=== PATIENT | female | born 1965 | race Caucasian/White ===

== ENCOUNTER 2021-06-26 09:28 | Emergency (ER) | payer SELFPAY ==
[2021-06-26] MEDS: Sodium Chloride 0.9% 1,000 ML IV ONE (10:12)
[2021-06-26] MEDS: Ondansetron 4 MG/2 ML SDV IVPUSH ONE (10:12)
[2021-06-26] MEDS ORDERED: Ondansetron 4 MG Tab.DIS PO ONE (11:30)
== END 2021-06-26 11:40 | disposition home or self-care (01) ==
LOC: FB.ED 09:28
DX: A08.4 Viral intestinal infection, unspecified (principal); R11.2 Nausea with vomiting, unspecified; D75.89 Other specified diseases of blood and blood-forming organs; Z88.2 Allergy status to sulfonamides; Z88.0 Allergy status to penicillin; Z72.0 Tobacco use
CPT/HCPCS: 80053; 85025; 96374; 99283; 99284-25; J2405; J7030; Q0162

== ENCOUNTER 2021-06-27 13:40 | Emergency (ER) | payer SELFPAY ==
[2021-06-27] MEDS: Sodium Chloride 0.9% 1,000 ML IV ONE (14:00)
[2021-06-27] MEDS: Dronabinol 2.5 MG Cap PO ONE (14:26)
[2021-06-27] MEDS: Prochlorperazine 5 MG in Sodium Chloride 0.9% 50 ML IV ONE (14:37)
== END 2021-06-27 15:42 | disposition home or self-care (01) ==
LOC: FB.ED 13:40
DX: F32.A Depression, unspecified (principal); F41.9 Anxiety disorder, unspecified; R11.2 Nausea with vomiting, unspecified; E86.0 Dehydration; Z88.0 Allergy status to penicillin; Z88.2 Allergy status to sulfonamides; Z72.0 Tobacco use
CPT/HCPCS: 36415; 80053; 85025; 86308; 96365; 99283; 99284-25; J0780; J7030

== ENCOUNTER 2021-11-23 15:50 | Observation (INO) | payer SELFPAY ==
[2021-11-23] MEDS ORDERED: Alum Hydroxide/Mag Hydroxide 30 ML, Lidocaine 2% 15 ML PO ONE ×2 (16:21)
[2021-11-23] MEDS ORDERED: hydrOXYzine HCl 50 MG/ML SDV IM ONE (16:21)
[2021-11-23] MEDS ORDERED: Ketorolac 30 MG/ML SDV IVPUSH ONE (16:21)
[2021-11-23] MEDS ORDERED: Sodium Chloride 0.9% 1,000 ML IV ONE ×3 (16:21→17:28)
[2021-11-23] MEDS ORDERED: Ondansetron 4 MG/2 ML SDV IVPUSH ONE (16:21)
[2021-11-23] MEDS ORDERED: Pantoprazole 40 MG Vial IVPUSH ONE (16:21)
[2021-11-23 17:00] LABS: ESTIMATED GFR 101 mL/min (>60)
[2021-11-23] MEDS ORDERED: Iopamidol 755 Mg/ML 100 ML Bottle IV ONE (17:47)
[2021-11-23] MEDS ORDERED: Acetaminophen 325 MG Tab PO PRN (18:44)
[2021-11-23] MEDS ORDERED: Zolpidem 5 MG Tab PO PRN (18:44)
[2021-11-23] MEDS ORDERED: Ondansetron 4 MG/2 ML SDV IV PRN (18:44)
[2021-11-23] MEDS ORDERED: hydrOXYzine HCl 50 MG/ML SDV IM PRN (18:44)
[2021-11-23] MEDS: Sodium Chloride 0.9% 250 ML IV SCH ×3 (20:50→23:20)
[2021-11-23] MEDS: Sodium Chloride 0.9% 10 ML Syringe FLUSH PRN (20:50)
[2021-11-23] MEDS: QUEtiapine 25 MG Tab *PTOM PO SCH (21:30)
[2021-11-23] MEDS ORDERED: Nicotine 21 MG/24 Hr Patch ONE (21:51)
[2021-11-23] MEDS: Nicotine 21 MG/24 Hr Patch TRDERM SCH (21:57)
[2021-11-24] MEDS: Sodium Chloride 0.9% 10 ML Syringe FLUSH PRN (02:20)
[2021-11-24 06:37] LABS: ESTIMATED GFR 86 mL/min (>60)
[2021-11-24] MEDS ORDERED: Sodium Chloride 0.9% 250 ML IV SCH ×2 (07:15→09:00)
[2021-11-24] MEDS ORDERED: Nicotine 21 MG/24 Hr Patch TRDERM SCH ×2 (09:00→21:30)
[2021-11-24] MEDS: CITALOPRAM HYDROBROMIDE 40 MG PO SCH (13:09)
[2021-11-24] MEDS ORDERED: Polyethylene Glycol 3350 Powder 238 GM Bot PO ONE (14:00)
[2021-11-24] MEDS ORDERED: Bisacodyl 5 MG Tab PO ONE ×2 (14:00→16:00)
[2021-11-24] MEDS: QUEtiapine 25 MG Tab *PTOM PO SCH (20:46)
[2021-11-24] MEDS: Nicotine 21 MG/24 Hr Patch TRDERM SCH (20:48)
[2021-11-25 07:11] LABS: ESTIMATED GFR 101 mL/min (>60)
[2021-11-25] MEDS: Sodium Chloride 0.9% 10 ML Syringe FLUSH PRN (07:59)
[2021-11-25] MEDS ORDERED: Lactated Ringers 1,000 ML IV SCH (08:00)
[2021-11-25] MEDS: CITALOPRAM HYDROBROMIDE 40 MG PO SCH (09:22)
[2021-11-25] MEDS ORDERED: Pantoprazole 40 MG Tab.CR PO SCH (10:00)
[2021-11-25] MEDS ORDERED: Sucralfate 1 GM Tab PO SCH (11:30)
[2021-11-25] MEDS ORDERED: Propofol 200 MG/20 ML SDV IV ONE (11:34)
[2021-11-25] MEDS ORDERED: Lidocaine 2% Viscous Solution 15 ML UD PO ONE (11:34)
== END 2021-11-25 11:35 | disposition home or self-care (01) ==
LOC: FB.ED 15:50 → FB.MS 17:36
PROVIDERS: ADMIT Family Medicine; ATTEND Family Medicine
DX: K29.01 Acute gastritis with bleeding (principal); K29.80 Duodenitis without bleeding; K62.1 Rectal polyp; K44.9 Diaphragmatic hernia without obstruction or gangrene; K31.89 Other diseases of stomach and duodenum; D64.9 Anemia, unspecified; F41.9 Anxiety disorder, unspecified; D50.0 Iron deficiency anemia secondary to blood loss (chronic); F32.A Depression, unspecified; K27.9 Peptic ulcer, site unspecified, unspecified as acute or chronic, without hemorrhage or perforation; J40 Bronchitis, not specified as acute or chronic; F17.210 Nicotine dependence, cigarettes, uncomplicated; Z88.0 Allergy status to penicillin; Z88.2 Allergy status to sulfonamides; Z79.899 Other long term (current) drug therapy; Z98.890 Other specified postprocedural states
CPT/HCPCS: 00813; 36415; 36430; 43239; 45384; 71046; 74177; 80048; 80053; 81001; 82272; 82607; 82728; 82746; 83010; 83615; 83690; 85025; 85045; 86140; 86850; 86880; 86900; 86901; 86920; 86922; 88300; 88305; 99217; 99219; 99283; A9270; C9113; J1885; J2405; J2704; J3410; J3490; J7030; J7050; J7120; P9016; Q9967

== ENCOUNTER 2022-06-25 10:52 | Emergency (ER) | payer MEDICAID ==
[2022-06-25] MEDS ORDERED: Ondansetron 4 MG Tab.DIS PO ONE (10:53)
[2022-06-25] MEDS ORDERED: Ondansetron 4 MG/2 ML SDV IVPUSH ONE (11:22)
[2022-06-25] MEDS ORDERED: Sodium Chloride 0.9% 1,000 ML IV SCH ×2 (11:30→12:15)
[2022-06-25] MEDS: Sodium Chloride 0.9% 10 ML Syringe FLUSH PRN ×3 (11:34→13:05)
[2022-06-25 11:49] LABS: ESTIMATED GFR 75 mL/min (>60)
[2022-06-25] MEDS ORDERED: Multivitamin Tab PO SCH (12:15)
[2022-06-25] MEDS ORDERED: Ketorolac 30 MG/ML SDV IVPUSH ONE (12:16)
[2022-06-25 12:19] LABS: CORONAVIRUS COVID-19 NAA NEGATIVE (NEGATIVE)
[2022-06-25] MEDS ORDERED: Prochlorperazine 10 MG/2 ML SDV IVPUSH ONE (12:53)
== END 2022-06-25 13:35 | disposition home or self-care (01) ==
LOC: FB.ED 10:52
DX: U07.1 COVID-19 (principal); E86.0 Dehydration; D64.9 Anemia, unspecified; Z88.0 Allergy status to penicillin; Z88.2 Allergy status to sulfonamides; Z79.899 Other long term (current) drug therapy
CPT/HCPCS: 0241U; 36415; 71045; 80053; 82150; 83690; 85025; 96361; 96374; 96375; 99284; A9270; J0780; J1885; J2405; J3490; J7030; Q0162

== ENCOUNTER 2022-12-29 18:11 | Emergency (ER) | payer MEDICAID ==
[2022-12-29] MEDS ORDERED: Ondansetron 4 MG/2 ML SDV IVPUSH ONE (18:45)
[2022-12-29] MEDS ORDERED: Sodium Chloride 0.9% 1,000 ML IV ONE (18:45)
[2022-12-29] MEDS ORDERED: Sodium Chloride 0.9% 10 ML Syringe FLUSH PRN (18:45)
[2022-12-29 19:21] LABS: BASOPHILS PERCENT AUTO 0.9 % (0.2-1.5); BLOOD UREA NITROGEN,BUN 17 mg/dL (7-18); BUN/CREATININE RATIO 24.3 (9-20); CALCIUM 8.8 mg/dL (8.6-10.2); CARBON DIOXIDE,CO2 27 mmol/L (21-32); CHLORIDE,CL 104 mmol/L (100-110); CREATININE 0.7 mg/dL (0.55-1.02); EOSINOPHILS ABSOLUTE AUTO 0.1 x10-3/uL (0.0-0.8); EOSINOPHILS PERCENT AUTO 1.3 % (0.6-8.1); EST CRCL DRUG DOSING (CG) 76.57 mL/min; ESTIMATED GFR 101 mL/min (>60); GLUCOSE RANDOM 148 mg/dL (80-116); HEMATOCRIT 23.6 % (34.2-48.2); HEMOGLOBIN 8.2 g/dL (11.4-15.5); LYMPHOCYTES ABSOLUTE AUTO 0.8 x10-3/uL (1.0-4.4); LYMPHOCYTES PERCENT AUTO 19.1 % (18.4-52.1); MEAN CORPUSCULAR HEMOGLOBIN 31.5 pg (23.9-33.9); MEAN CORPUSCULAR HGB CONC 34.7 g/dL (31.9-34.8); MEAN CORPUSCULAR VOLUME 90.8 fL (76.7-100.5); MEAN PLATELET VOLUME 8.1 fL (7.1-12.4); MONOCYTES ABSOLUTE AUTO 0.3 x10-3/uL (0.3-1.0); NEUTROPHILS PERCENT AUTO 70.7 % (30.8-76.2); PLATELET COUNT,PLT 246 x10(3)uL (151-488); RED CELL DISTRIBUTION WIDTH 14.5 % (12.3-16.5); SODIUM,NA 139 mmol/L (135-145); WHITE BLOOD CELL COUNT,WBC 4.2 x10-3/uL (3.0-10.3)
[2022-12-29 19:27] LABS: A/G RATIO 1.2; ALANINE AMINOTRANSFERASE,ALT 40 U/L (12-36); ALBUMIN 3.6 g/dL (3.5-5.2); ALKALINE PHOSPHATASE 115 IU/L (56-112); ASPARTATE AMNIOTRANSFERASE,AST 30 IU/L (5-25); BILIRUBIN TOTAL 1.3 mg/dL (0.1-1.3); PROTEIN TOTAL,TP 6.7 g/dL (6.0-8.0)
[2022-12-29 20:30] LABS: BILIRUBIN,URINE NEGATIVE (NEGATIVE); GLUCOSE,URINE NORMAL (NORMAL); KETONES,URINE 15 mg/dL (NEGATIVE); LEUKOCYTE ESTERASE,URINE SMALL (NEGATIVE); NITRITE,URINE NEGATIVE (NEGATIVE); OCCULT BLOOD,URINE MODERATE (NEGATIVE); PROTEIN,URINE TRACE mg/dL (NEGATIVE); UROBILINOGEN,URINE NORMAL (NEGATIVE)
[2022-12-29 20:31] LABS: APPEARANCE,URINE SLIGHTLY CLOUDY (CLEAR); BACTERIA,URINE MODERATE (NS); COLOR,URINE YELLOW (YELLOW); RBC,URINE 0-5 (0-5); SQUAMOUS EPITHELIAL CELLS,UR FEW (NS,R,O); WBC,URINE 0-5 (0-5)
[2022-12-29 20:32] LABS: MUCUS,URINE FEW (NS)
== END 2022-12-29 20:32 | disposition still patient (30) ==
LOC: FB.ED 18:11
DX: S99.921A Unspecified injury of right foot, initial encounter (principal); E86.0 Dehydration; F17.200 Nicotine dependence, unspecified, uncomplicated; Z88.0 Allergy status to penicillin; Z88.1 Allergy status to other antibiotic agents; X50.1XXA Overexertion from prolonged static or awkward postures, initial encounter; Y93.01 Activity, walking, marching and hiking
CPT/HCPCS: 36415; 80053; 81001; 83690; 83735; 85025; 87635; 96361; 96374; 99284; J2405; J3490; J7030; U0002

== ENCOUNTER 2023-01-06 13:00 | Emergency (ER) | payer MEDICAID ==
[2023-01-06] MEDS: Sodium Chloride 0.9% 1,000 ML IV SCH (13:39)
[2023-01-06] MEDS: Ondansetron 4 MG/2 ML SDV IVPUSH ONE (13:40)
[2023-01-06 13:41] LABS: EOSINOPHILS PERCENT AUTO 0.9 % (0.6-8.1); HEMATOCRIT 25.2 % (34.2-48.2); HEMOGLOBIN 8.7 g/dL (11.4-15.5); LYMPHOCYTES ABSOLUTE AUTO 0.9 x10-3/uL (1.0-4.4); LYMPHOCYTES PERCENT AUTO 23.1 % (18.4-52.1); MEAN CORPUSCULAR HEMOGLOBIN 31.3 pg (23.9-33.9); MEAN CORPUSCULAR HGB CONC 34.6 g/dL (31.9-34.8); MEAN CORPUSCULAR VOLUME 90.5 fL (76.7-100.5); MEAN PLATELET VOLUME 8.6 fL (7.1-12.4); MONOCYTES ABSOLUTE AUTO 0.3 x10-3/uL (0.3-1.0); NEUTROPHILS ABSOLUTE AUTO 2.7 x10-3/uL (1.5-6.3); PLATELET COUNT,PLT 176 x10(3)uL (151-488); RED BLOOD CELL COUNT 2.78 x10(6)uL (3.60-5.20); RED CELL DISTRIBUTION WIDTH 15.3 % (12.3-16.5)
[2023-01-06] MEDS: Morphine 4 MG/ML VIAL IVPUSH ONE (13:42)
[2023-01-06 13:47] LABS: BLOOD UREA NITROGEN,BUN 17 mg/dL (7-18); BUN/CREATININE RATIO 24.3 (9-20); CALCIUM 9.1 mg/dL (8.6-10.2); CARBON DIOXIDE,CO2 30 mmol/L (21-32); CHLORIDE,CL 108 mmol/L (100-110); CREATININE 0.7 mg/dL (0.55-1.02); ESTIMATED GFR 101 mL/min (>60); GLUCOSE RANDOM 145 mg/dL (80-116); POTASSIUM,K 4.6 mmol/L (3.5-5.3); SODIUM,NA 146 mmol/L (135-145)
[2023-01-06 13:53] LABS: A/G RATIO 1.3; ALANINE AMINOTRANSFERASE,ALT 38 U/L (12-36); ALBUMIN 3.5 g/dL (3.5-5.2); ALKALINE PHOSPHATASE 100 IU/L (56-112); AMYLASE 30 U/L (25-115); ASPARTATE AMNIOTRANSFERASE,AST 35 IU/L (5-25); BILIRUBIN TOTAL 1.2 mg/dL (0.1-1.3); PROTEIN TOTAL,TP 6.3 g/dL (6.0-8.0)
[2023-01-06 13:56] LABS: LACTIC ACID 1.2 mmol/L (0.4-2.0)
== END 2023-01-06 15:16 | disposition home or self-care (01) ==
LOC: FB.ED 13:00
DX: K52.9 Noninfective gastroenteritis and colitis, unspecified (principal); Z72.0 Tobacco use; Z88.0 Allergy status to penicillin; Z88.2 Allergy status to sulfonamides
CPT/HCPCS: 36415; 80053; 82150; 83605; 83690; 85025; 96361; 96374; 96375; 99283; 99284-25; J2270; J2405; J7030

== ENCOUNTER 2023-01-09 15:51 | Observation (INO) | payer MEDICAID ==
[2023-01-09] MEDS: Sodium Chloride 0.9% 1,000 ML IV ONE (16:30)
[2023-01-09] MEDS: Ondansetron 4 MG/2 ML SDV IVPUSH ONE (16:33)
[2023-01-09 16:35] LABS: BASOPHILS PERCENT AUTO 0.7 % (0.2-1.5); EOSINOPHILS PERCENT AUTO 0.8 % (0.6-8.1); LYMPHOCYTES ABSOLUTE AUTO 1.1 x10-3/uL (1.0-4.4); LYMPHOCYTES PERCENT AUTO 32.5 % (18.4-52.1); MEAN CORPUSCULAR HGB CONC 34.6 g/dL (31.9-34.8); MEAN CORPUSCULAR VOLUME 89.5 fL (76.7-100.5); MEAN PLATELET VOLUME 8.2 fL (7.1-12.4); MONOCYTES ABSOLUTE AUTO 0.3 x10-3/uL (0.3-1.0); MONOCYTES PERCENT AUTO 7.4 % (4.4-15.7); NEUTROPHILS ABSOLUTE AUTO 2.1 x10-3/uL (1.5-6.3); NEUTROPHILS PERCENT AUTO 58.6 % (30.8-76.2); PLATELET COUNT,PLT 187 x10(3)uL (151-488); RED BLOOD CELL COUNT 2.57 x10(6)uL (3.60-5.20); WHITE BLOOD CELL COUNT,WBC 3.5 x10-3/uL (3.0-10.3)
[2023-01-09 16:41] LABS: BLOOD UREA NITROGEN,BUN 24 mg/dL (7-18); BUN/CREATININE RATIO 34.3 (9-20); CALCIUM 8.8 mg/dL (8.6-10.2); CARBON DIOXIDE,CO2 30 mmol/L (21-32); CHLORIDE,CL 106 mmol/L (100-110); CREATININE 0.7 mg/dL (0.55-1.02); ESTIMATED GFR 101 mL/min (>60); GLUCOSE RANDOM 106 mg/dL (80-116); POTASSIUM,K 3.6 mmol/L (3.5-5.3); SODIUM,NA 144 mmol/L (135-145)
[2023-01-09 16:47] LABS: A/G RATIO 1.3; ALANINE AMINOTRANSFERASE,ALT 40 U/L (12-36); ALBUMIN 3.6 g/dL (3.5-5.2); ALKALINE PHOSPHATASE 100 IU/L (56-112); ASPARTATE AMNIOTRANSFERASE,AST 28 IU/L (5-25); BILIRUBIN TOTAL 1.4 mg/dL (0.1-1.3); PROTEIN TOTAL,TP 6.3 g/dL (6.0-8.0)
[2023-01-09] MEDS: Iopamidol 755 Mg/ML 100 ML Bottle IV SCH (17:48)
[2023-01-09 18:48] LABS: BILIRUBIN,URINE NEGATIVE (NEGATIVE); GLUCOSE,URINE NORMAL (NORMAL); KETONES,URINE 50 mg/dL (NEGATIVE); LEUKOCYTE ESTERASE,URINE NEGATIVE (NEGATIVE); NITRITE,URINE NEGATIVE (NEGATIVE); OCCULT BLOOD,URINE MODERATE (NEGATIVE); PH,URINE 6.5 (5.0-6.5); PROTEIN,URINE NEGATIVE (NEGATIVE); UROBILINOGEN,URINE 4 mg/dL (NEGATIVE)
[2023-01-09 18:52] LABS: APPEARANCE,URINE CLEAR (CLEAR); BACTERIA,URINE OCCASIONAL (NS); CALCIUM OXALATE CRYSTALS,URINE OCCASIONAL (NS); COLOR,URINE YELLOW (YELLOW); RBC,URINE 0-5 (0-5); SQUAMOUS EPITHELIAL CELLS,UR OCCASIONAL (NS,R,O); WBC,URINE 0-5 (0-5)
[2023-01-09] MEDS ORDERED: Zolpidem 5 MG Tab PO PRN (19:56)
[2023-01-09] MEDS ORDERED: Ondansetron 4 MG/2 ML SDV IVPUSH PRN (20:00)
[2023-01-09] MEDS ORDERED: Sodium Chloride 0.9% 250 ML IV SCH (20:00)
[2023-01-09] MEDS ORDERED: Loperamide 2 MG Cap PO PRN (20:00)
[2023-01-09] MEDS: Acetaminophen 325 MG Tab PO PRN (21:43)
[2023-01-09] MEDS: QUEtiapine 25 MG Tab PO SCH (21:43)
[2023-01-10] MEDS ORDERED: Non-Formulary Medication 1 Each (Esomeprazole Magnesium [Nexium] 40 MG Capsule.Dr) PO SCH ×2 (09:00)
[2023-01-10 10:25] LABS: BASOPHILS PERCENT AUTO 1.4 % (0.2-1.5); EOSINOPHILS PERCENT AUTO 1.4 % (0.6-8.1); HEMATOCRIT 29.4 % (34.2-48.2); HEMOGLOBIN 10.3 g/dL (11.4-15.5); LYMPHOCYTES ABSOLUTE AUTO 1.1 x10-3/uL (1.0-4.4); LYMPHOCYTES PERCENT AUTO 35.5 % (18.4-52.1); MEAN CORPUSCULAR HEMOGLOBIN 31.2 pg (23.9-33.9); MEAN CORPUSCULAR HGB CONC 34.9 g/dL (31.9-34.8); MEAN CORPUSCULAR VOLUME 89.3 fL (76.7-100.5); MEAN PLATELET VOLUME 8.5 fL (7.1-12.4); MONOCYTES ABSOLUTE AUTO 0.2 x10-3/uL (0.3-1.0); MONOCYTES PERCENT AUTO 7.6 % (4.4-15.7); NEUTROPHILS ABSOLUTE AUTO 1.7 x10-3/uL (1.5-6.3); NEUTROPHILS PERCENT AUTO 54.1 % (30.8-76.2); PLATELET COUNT,PLT 175 x10(3)uL (151-488); RED BLOOD CELL COUNT 3.29 x10(6)uL (3.60-5.20); RED CELL DISTRIBUTION WIDTH 14.7 % (12.3-16.5); WHITE BLOOD CELL COUNT,WBC 3.2 x10-3/uL (3.0-10.3)
[2023-01-10 10:34] LABS: A/G RATIO 1.3; ALBUMIN 3.5 g/dL (3.5-5.2); BILIRUBIN TOTAL 1.7 mg/dL (0.1-1.3); CARBON DIOXIDE,CO2 30 mmol/L (21-32); CHLORIDE,CL 105 mmol/L (100-110); CREATININE 0.8 mg/dL (0.55-1.02); ESTIMATED GFR 86 mL/min (>60); GLUCOSE RANDOM 127 mg/dL (80-116); POTASSIUM,K 3.6 mmol/L (3.5-5.3); PROTEIN TOTAL,TP 6.2 g/dL (6.0-8.0); SODIUM,NA 141 mmol/L (135-145)
[2023-01-10 10:36] LABS: ALANINE AMINOTRANSFERASE,ALT 62 U/L (12-36); ALKALINE PHOSPHATASE 108 IU/L (56-112); ASPARTATE AMNIOTRANSFERASE,AST 89 IU/L (5-25); BLOOD UREA NITROGEN,BUN 17 mg/dL (7-18); BUN/CREATININE RATIO 21.3 (9-20); CALCIUM 8.9 mg/dL (8.6-10.2)
== END 2023-01-10 11:23 | disposition home or self-care (01) ==
LOC: FB.ED 15:51 → FB.MS 19:38
PROVIDERS: ADMIT Family Medicine; ATTEND Family Medicine
DX: D64.9 Anemia, unspecified (principal); K29.50 Unspecified chronic gastritis without bleeding; N19 Unspecified kidney failure; K52.9 Noninfective gastroenteritis and colitis, unspecified; E86.0 Dehydration; R16.1 Splenomegaly, not elsewhere classified; R11.2 Nausea with vomiting, unspecified; Z79.899 Other long term (current) drug therapy
CPT/HCPCS: 36415; 36430; 71275; 80053; 81001; 82248; 84484; 85025; 85379; 86140; 86850; 86900; 86901; 86920; 86922; 93005; 93010; 96361; 96374; 99222; 99238; 99285; 99285-25; A9270-GY; G0378; J2405; J7030; P9040; Q9967

== ENCOUNTER 2023-02-13 07:31 | Day surgery (SDC) | payer MEDICAID ==
[~2023-02-13 07:31] MED LIST: Lactated Ringers 1,000 ML IV SCH; Sodium Chloride 0.9% 10 ML Syringe FLUSH PRN
[2023-02-13] MEDS ORDERED: Lidocaine 2% 5 ML SDV IV ONE (07:32)
[2023-02-13] MEDS ORDERED: Midazolam 1 MG/ML 2 ML SDV IV ONE (07:32)
[2023-02-13] MEDS ORDERED: Propofol 200 MG/20 ML SDV IV ONE (07:32)
[2023-02-13] MEDS ORDERED: Ketamine 500 mg/10 ML MDV IV ONE (07:32)
[2023-02-13] MEDS ORDERED: ceFAZolin 1 GM Vial IVPUSH ONE (08:30)
[2023-02-13] MEDS ORDERED: Lidocaine 1% 20 ML MDV INJECT ONE (09:32)
[2023-02-13] MEDS ORDERED: Bupivacaine 0.5% 30 ML SDV INJECT ONE (09:32)
== END 2023-02-13 11:40 | disposition home or self-care (01) ==
LOC: FB.SDS 07:31
PROVIDERS: ATTEND Surgery
DX: D46.9 Myelodysplastic syndrome, unspecified (principal); Z79.899 Other long term (current) drug therapy; Z88.0 Allergy status to penicillin; Z88.2 Allergy status to sulfonamides
CPT/HCPCS: 36561; 76000; J0690; J1642; J2250; J2704; J3490; J7120; 00532

== ENCOUNTER 2023-03-16 09:12 | Emergency (ER) | payer MEDICAID ==
[2023-03-16] MEDS ORDERED: Ondansetron 4 MG/2 ML SDV IVPUSH ONE (09:39)
[2023-03-16] MEDS ORDERED: Sodium Chloride 0.9% 10 ML Syringe FLUSH PRN (09:39)
[2023-03-16] MEDS ORDERED: Sodium Chloride 0.9% 1,000 ML IV SCH (09:45)
[2023-03-16 10:05] LABS: BASOPHILS PERCENT AUTO 0.7 % (0.2-1.5); EOSINOPHILS ABSOLUTE AUTO 0.1 x10-3/uL (0.0-0.8); EOSINOPHILS PERCENT AUTO 3.3 % (0.6-8.1); HEMATOCRIT 28.1 % (34.2-48.2); HEMOGLOBIN 9.7 g/dL (11.4-15.5); LYMPHOCYTES ABSOLUTE AUTO 1.4 x10-3/uL (1.0-4.4); LYMPHOCYTES PERCENT AUTO 34.5 % (18.4-52.1); MEAN CORPUSCULAR HEMOGLOBIN 29.7 pg (23.9-33.9); MEAN CORPUSCULAR HGB CONC 34.5 g/dL (31.9-34.8); MEAN CORPUSCULAR VOLUME 86.1 fL (76.7-100.5); MEAN PLATELET VOLUME 8.1 fL (7.1-12.4); MONOCYTES ABSOLUTE AUTO 0.3 x10-3/uL (0.3-1.0); MONOCYTES PERCENT AUTO 7.6 % (4.4-15.7); NEUTROPHILS ABSOLUTE AUTO 2.2 x10-3/uL (1.5-6.3); NEUTROPHILS PERCENT AUTO 53.9 % (30.8-76.2); PLATELET COUNT,PLT 184 x10(3)uL (151-488); RED BLOOD CELL COUNT 3.27 x10(6)uL (3.60-5.20); RED CELL DISTRIBUTION WIDTH 14.1 % (12.3-16.5)
[2023-03-16 10:09] LABS: BLOOD UREA NITROGEN,BUN 16 mg/dL (7-18); BUN/CREATININE RATIO 26.7 (9-20); CALCIUM 8.6 mg/dL (8.6-10.2); CARBON DIOXIDE,CO2 29 mmol/L (21-32); CHLORIDE,CL 105 mmol/L (100-110); CREATININE 0.6 mg/dL (0.55-1.02); EST CRCL DRUG DOSING (CG) 89.33 mL/min; ESTIMATED GFR 105 mL/min (>60); GLUCOSE RANDOM 95 mg/dL (80-116); POTASSIUM,K 4.3 mmol/L (3.5-5.3); SODIUM,NA 136 mmol/L (135-145)
[2023-03-16 10:20] LABS: ALANINE AMINOTRANSFERASE,ALT 53 U/L (12-36); ALBUMIN 3.3 g/dL (3.5-5.2); ALKALINE PHOSPHATASE 106 IU/L (56-112); ASPARTATE AMNIOTRANSFERASE,AST 48 IU/L (5-25); BILIRUBIN TOTAL 1.4 mg/dL (0.1-1.3); PROTEIN TOTAL,TP 6.6 g/dL (6.0-8.0)
[2023-03-16] MEDS ORDERED: Heparin Sodium 10 Units/ML 5 ML Syringe FLUSH STA (11:24)
== END 2023-03-16 11:40 | disposition home or self-care (01) ==
LOC: FB.ED 09:12
DX: K52.9 Noninfective gastroenteritis and colitis, unspecified (principal); E86.0 Dehydration; D64.9 Anemia, unspecified; F17.210 Nicotine dependence, cigarettes, uncomplicated; Z88.0 Allergy status to penicillin; Z79.899 Other long term (current) drug therapy; Z88.2 Allergy status to sulfonamides
CPT/HCPCS: 80053; 85025; 96361; 96374; 99283; 99284; J1642; J2405; J7030

== ENCOUNTER 2023-04-10 17:05 | Emergency (ER) | payer MEDICAID ==
[2023-04-10] MEDS ORDERED: Ondansetron 4 MG/2 ML SDV IVPUSH ONE (17:21)
[2023-04-10] MEDS ORDERED: Sodium Chloride 0.9% 1,000 ML IV ONE (17:21)
[2023-04-10] MEDS ORDERED: HYDROmorphone 2 MG/ML SDV IVPUSH ONE (17:21)
[2023-04-10] MEDS ORDERED: Naloxone 0.4 MG/ML SDV IVPUSH PRN (17:21)
[2023-04-10 17:48] LABS: HEMOGLOBIN 11.2 g/dL (11.4-15.5); RED CELL DISTRIBUTION WIDTH 13.2 % (12.3-16.5)
[2023-04-10 17:51] LABS: BASOPHILS PERCENT AUTO 0.7 % (0.2-1.5); EOSINOPHILS ABSOLUTE AUTO 0.1 x10-3/uL (0.0-0.8); EOSINOPHILS PERCENT AUTO 2.5 % (0.6-8.1); HEMATOCRIT 31.7 % (34.2-48.2); LYMPHOCYTES ABSOLUTE AUTO 1.9 x10-3/uL (1.0-4.4); LYMPHOCYTES PERCENT AUTO 41.1 % (18.4-52.1); MEAN CORPUSCULAR HEMOGLOBIN 30.2 pg (23.9-33.9); MEAN CORPUSCULAR HGB CONC 35.5 g/dL (31.9-34.8); MEAN PLATELET VOLUME 8.3 fL (7.1-12.4); MONOCYTES ABSOLUTE AUTO 0.2 x10-3/uL (0.3-1.0); MONOCYTES PERCENT AUTO 3.9 % (4.4-15.7); NEUTROPHILS ABSOLUTE AUTO 2.4 x10-3/uL (1.5-6.3); NEUTROPHILS PERCENT AUTO 51.8 % (30.8-76.2); PLATELET COUNT,PLT 151 x10(3)uL (151-488); RED BLOOD CELL COUNT 3.73 x10(6)uL (3.60-5.20); WHITE BLOOD CELL COUNT,WBC 4.7 x10-3/uL (3.0-10.3)
[2023-04-10 18:01] LABS: BLOOD UREA NITROGEN,BUN 22 mg/dL (7-18); BUN/CREATININE RATIO 31.4 (9-20); CALCIUM 9.2 mg/dL (8.6-10.2); CARBON DIOXIDE,CO2 29 mmol/L (21-32); CHLORIDE,CL 105 mmol/L (100-110); CREATININE 0.7 mg/dL (0.55-1.02); EST CRCL DRUG DOSING (CG) 76.57 mL/min; ESTIMATED GFR 101 mL/min (>60); GLUCOSE RANDOM 95 mg/dL (80-116); POTASSIUM,K 3.1 mmol/L (3.5-5.3); SODIUM,NA 140 mmol/L (135-145)
[2023-04-10 18:07] LABS: A/G RATIO 1.2; ALANINE AMINOTRANSFERASE,ALT 40 U/L (12-36); ALBUMIN 3.5 g/dL (3.5-5.2); ALKALINE PHOSPHATASE 116 IU/L (56-112); ASPARTATE AMNIOTRANSFERASE,AST 28 IU/L (5-25); BILIRUBIN TOTAL 1.8 mg/dL (0.1-1.3); MAGNESIUM 1.6 mg/dL (1.8-2.5); PROTEIN TOTAL,TP 6.4 g/dL (6.0-8.0)
[2023-04-10] MEDS ORDERED: LORazepam 2 MG/ML SDV IVPUSH ONE (18:41)
[2023-04-10] MEDS ORDERED: Prochlorperazine 10 MG/2 ML SDV IVPUSH ONE (18:41)
[2023-04-10] MEDS ORDERED: Magnesium Sulfate/Water 2 GM in Premix Bag 1 BAG IV ONE (18:41)
[2023-04-10] MEDS ORDERED: Potassium Chloride 20 MEQ Tab.ER PO ONE (18:41)
== END 2023-04-10 20:35 | disposition home or self-care (01) ==
LOC: FB.ED 17:05
DX: E87.6 Hypokalemia (principal); E83.42 Hypomagnesemia; E86.0 Dehydration; R10.84 Generalized abdominal pain; R51.9 Headache, unspecified; Z88.0 Allergy status to penicillin; Z88.2 Allergy status to sulfonamides; Z87.891 Personal history of nicotine dependence
CPT/HCPCS: 80053; 83605; 83735; 85025; 86140; 96361; 96365; 96375; 99284; A9270; J0780; J1170; J1642; J2060; J2405; J3475; J7030

== ENCOUNTER 2023-08-20 14:43 | Emergency (ER) | payer MEDICAID ==
[2023-08-20 15:38] LABS: BASOPHILS PERCENT AUTO 0.8 % (0.2-1.5); EOSINOPHILS PERCENT AUTO 0.4 % (0.6-8.1); LYMPHOCYTES ABSOLUTE AUTO 1.2 x10-3/uL (1.0-4.4); LYMPHOCYTES PERCENT AUTO 25.3 % (18.4-52.1); MEAN CORPUSCULAR HGB CONC 34.4 g/dL (31.9-34.8); MEAN CORPUSCULAR VOLUME 90.2 fL (76.7-100.5); MEAN PLATELET VOLUME 10.5 fL (7.1-12.4); MONOCYTES ABSOLUTE AUTO 0.3 x10-3/uL (0.3-1.0); MONOCYTES PERCENT AUTO 5.5 % (4.4-15.7); NEUTROPHILS ABSOLUTE AUTO 3.3 x10-3/uL (1.5-6.3); PLATELET COUNT,PLT 124 x10(3)uL (151-488); RED BLOOD CELL COUNT 2.23 x10(6)uL (3.60-5.20); RED CELL DISTRIBUTION WIDTH 13.4 % (12.3-16.5); WHITE BLOOD CELL COUNT,WBC 4.9 x10-3/uL (3.0-10.3)
[2023-08-20 15:39] LABS: BLOOD UREA NITROGEN,BUN 35 mg/dL (7-18); CARBON DIOXIDE,CO2 27 mmol/L (21-32); CHLORIDE,CL 103 mmol/L (100-110); CREATININE 0.7 mg/dL (0.55-1.02); EST CRCL DRUG DOSING (CG) 75.65 mL/min; ESTIMATED GFR 100 mL/min (>60); GLUCOSE RANDOM 179 mg/dL (80-116); POTASSIUM,K 3.7 mmol/L (3.5-5.3); SODIUM,NA 141 mmol/L (135-145)
[2023-08-20 15:41] LABS: HEMATOCRIT 20.1 % (34.2-48.2); HEMOGLOBIN 6.9 g/dL (11.4-15.5)
[2023-08-20 15:48] LABS: A/G RATIO 1.2; ALANINE AMINOTRANSFERASE,ALT 49 U/L (12-36); ALBUMIN 3.6 g/dL (3.5-5.2); ALKALINE PHOSPHATASE 194 IU/L (56-112); ASPARTATE AMNIOTRANSFERASE,AST 50 IU/L (5-25); BILIRUBIN TOTAL 1.3 mg/dL (0.1-1.3); PROTEIN TOTAL,TP 6.7 g/dL (6.0-8.0)
[2023-08-20 16:25] LABS: BILIRUBIN,URINE NEGATIVE (NEGATIVE); GLUCOSE,URINE NORMAL (NORMAL); KETONES,URINE NEGATIVE (NEGATIVE); LEUKOCYTE ESTERASE,URINE SMALL (NEGATIVE); NITRITE,URINE NEGATIVE (NEGATIVE); OCCULT BLOOD,URINE MODERATE (NEGATIVE); PROTEIN,URINE 30 mg/dL (NEGATIVE); UROBILINOGEN,URINE 1 mg/dL (NEGATIVE)
[2023-08-20 16:31] LABS: APPEARANCE,URINE SLIGHTLY CLOUDY (CLEAR); BACTERIA,URINE MODERATE (NS); COLOR,URINE YELLOW (YELLOW); HYALINE CASTS,URINE FEW (NS); RBC,URINE 0-5 (0-5); SQUAMOUS EPITHELIAL CELLS,UR MODERATE (NS,R,O); WBC,URINE 0-5 (0-5)
[2023-08-20 16:32] LABS: MUCUS,URINE FEW (NS)
[2023-08-20] MEDS: diphenhydrAMINE 50 MG/ML SDV IVPUSH ONE (18:58)
[2023-08-20] MEDS: Ondansetron 4 MG/2 ML SDV IVPUSH ONE (18:58)
[2023-08-20] MEDS: Acetaminophen 500 MG Tab PO ONE (19:17)
[2023-08-20] MEDS: Sodium Chloride 0.9% 250 ML IV SCH (19:32)
== END 2023-08-20 23:33 | disposition home or self-care (01) ==
LOC: FB.ED 14:43
DX: D46.9 Myelodysplastic syndrome, unspecified (principal); F17.210 Nicotine dependence, cigarettes, uncomplicated; Z88.0 Allergy status to penicillin; Z88.2 Allergy status to sulfonamides; Z79.899 Other long term (current) drug therapy
CPT/HCPCS: 36415; 36430; 80053; 81001; 85025; 86850; 86900; 86901; 86920; 86922; 86945; 93005; 96374; 96375; 99285-25; A9270-GY; J1200; J1642; J2405; J7050; P9040

== ENCOUNTER 2023-09-02 07:12 | Emergency (ER) | payer MEDICAID ==
[2023-09-02] MEDS ORDERED: Ondansetron 4 MG Tab.DIS PO ONE (07:13)
[2023-09-02 08:12] LABS: BASOPHILS PERCENT AUTO 0.7 % (0.2-1.5); EOSINOPHILS PERCENT AUTO 0.7 % (0.6-8.1); HEMATOCRIT 27.5 % (34.2-48.2); HEMOGLOBIN 9.3 g/dL (11.4-15.5); LYMPHOCYTES ABSOLUTE AUTO 0.8 x10-3/uL (1.0-4.4); LYMPHOCYTES PERCENT AUTO 18.7 % (18.4-52.1); MEAN CORPUSCULAR HEMOGLOBIN 29.7 pg (23.9-33.9); MEAN CORPUSCULAR HGB CONC 33.7 g/dL (31.9-34.8); MEAN PLATELET VOLUME 10.2 fL (7.1-12.4); MONOCYTES ABSOLUTE AUTO 0.2 x10-3/uL (0.3-1.0); MONOCYTES PERCENT AUTO 4.6 % (4.4-15.7); NEUTROPHILS ABSOLUTE AUTO 3.1 x10-3/uL (1.5-6.3); NEUTROPHILS PERCENT AUTO 75.3 % (30.8-76.2); PLATELET COUNT,PLT 139 x10(3)uL (151-488); RED BLOOD CELL COUNT 3.13 x10(6)uL (3.60-5.20); RED CELL DISTRIBUTION WIDTH 12.8 % (12.3-16.5); WHITE BLOOD CELL COUNT,WBC 4.2 x10-3/uL (3.0-10.3)
[2023-09-02 08:17] LABS: BLOOD UREA NITROGEN,BUN 34 mg/dL (7-18); CALCIUM 8.5 mg/dL (8.6-10.2); CARBON DIOXIDE,CO2 26 mmol/L (21-32); CHLORIDE,CL 105 mmol/L (100-110); CREATININE 0.6 mg/dL (0.55-1.02); ESTIMATED GFR 104 mL/min (>60); GLUCOSE RANDOM 201 mg/dL (80-116); POTASSIUM,K 3.8 mmol/L (3.5-5.3); SODIUM,NA 143 mmol/L (135-145)
[2023-09-02 08:19] LABS: C-REACTIVE PROTEIN 0.65 mg/dL (<0.50)
[2023-09-02 08:23] LABS: A/G RATIO 1.1; ALANINE AMINOTRANSFERASE,ALT 80 U/L (12-36); ALBUMIN 3.6 g/dL (3.5-5.2); ALKALINE PHOSPHATASE 207 IU/L (56-112); ASPARTATE AMNIOTRANSFERASE,AST 87 IU/L (5-25); BILIRUBIN TOTAL 1.3 mg/dL (0.1-1.3); MAGNESIUM 1.8 mg/dL (1.8-2.5); PROTEIN TOTAL,TP 6.9 g/dL (6.0-8.0)
[2023-09-02 08:30] LABS: BUN/CREATININE RATIO 56.7 (9-20)
[2023-09-02] MEDS: Sodium Chloride 0.9% 1,000 ML IV ONE (08:49)
[2023-09-02] MEDS: Ondansetron 4 MG/2 ML SDV IVPUSH ONE (08:54)
[2023-09-02 10:13] LABS: BILIRUBIN,URINE NEGATIVE (NEGATIVE); GLUCOSE,URINE NORMAL (NORMAL); KETONES,URINE NEGATIVE (NEGATIVE); LEUKOCYTE ESTERASE,URINE NEGATIVE (NEGATIVE); NITRITE,URINE NEGATIVE (NEGATIVE); OCCULT BLOOD,URINE MODERATE (NEGATIVE); PROTEIN,URINE 30 mg/dL (NEGATIVE); UROBILINOGEN,URINE 4 mg/dL (NEGATIVE)
[2023-09-02 10:34] LABS: APPEARANCE,URINE CLOUDY (CLEAR); BACTERIA,URINE FEW (NS); COLOR,URINE YELLOW (YELLOW); MUCUS,URINE MANY (NS); RBC,URINE 0-5 (0-5); SQUAMOUS EPITHELIAL CELLS,UR MANY (NS,R,O); WBC,URINE 0-5 (0-5)
[2023-09-02] MEDS: Sodium Chloride 0.9% 10 ML Syringe FLUSH PRN (11:13)
== END 2023-09-02 11:29 | disposition home or self-care (01) ==
LOC: FB.ED 07:12
DX: E86.0 Dehydration (principal); D64.9 Anemia, unspecified; F17.200 Nicotine dependence, unspecified, uncomplicated; Z88.0 Allergy status to penicillin; Z88.2 Allergy status to sulfonamides; Z79.899 Other long term (current) drug therapy
CPT/HCPCS: 80053; 81001; 83690; 83735; 84484; 85025; 86140; 93005; 96361; 96374; 99284-25; J1642; J2405; J3490; J7030; Q0162

== ENCOUNTER 2023-11-26 09:53 | Emergency (ER) | payer MEDICAID ==
[2023-11-26] MEDS ORDERED: Sodium Chloride 0.9% 10 ML Syringe FLUSH PRN (10:24)
[2023-11-26 10:47] LABS: BASOPHILS PERCENT AUTO 0.6 % (0.2-1.5); EOSINOPHILS PERCENT AUTO 0.3 % (0.6-8.1); HEMATOCRIT 26.4 % (34.2-48.2); LYMPHOCYTES ABSOLUTE AUTO 1.6 x10-3/uL (1.0-4.4); LYMPHOCYTES PERCENT AUTO 37.4 % (18.4-52.1); MEAN CORPUSCULAR HGB CONC 34.2 g/dL (31.9-34.8); MEAN CORPUSCULAR VOLUME 87.7 fL (76.7-100.5); MEAN PLATELET VOLUME 10.1 fL (7.1-12.4); MONOCYTES ABSOLUTE AUTO 0.2 x10-3/uL (0.3-1.0); MONOCYTES PERCENT AUTO 5.2 % (4.4-15.7); NEUTROPHILS ABSOLUTE AUTO 2.5 x10-3/uL (1.5-6.3); NEUTROPHILS PERCENT AUTO 56.5 % (30.8-76.2); PLATELET COUNT,PLT 132 x10(3)uL (151-488); RED BLOOD CELL COUNT 3.01 x10(6)uL (3.60-5.20); RED CELL DISTRIBUTION WIDTH 13.3 % (12.3-16.5); WHITE BLOOD CELL COUNT,WBC 4.4 x10-3/uL (3.0-10.3)
[2023-11-26 10:48] LABS: BLOOD UREA NITROGEN,BUN 28 mg/dL (7-18); CALCIUM 8.9 mg/dL (8.6-10.2); CARBON DIOXIDE,CO2 25 mmol/L (21-32); CHLORIDE,CL 104 mmol/L (100-110); CREATININE 0.8 mg/dL (0.55-1.02); ESTIMATED GFR 85 mL/min (>60); GLUCOSE RANDOM 164 mg/dL (80-116); POTASSIUM,K 3.6 mmol/L (3.5-5.3); SODIUM,NA 140 mmol/L (135-145)
[2023-11-26 10:54] LABS: A/G RATIO 1.1; ALANINE AMINOTRANSFERASE,ALT 56 U/L (12-36); ALBUMIN 3.8 g/dL (3.5-5.2); ALKALINE PHOSPHATASE 195 IU/L (56-112); ASPARTATE AMNIOTRANSFERASE,AST 73 IU/L (5-25); BILIRUBIN TOTAL 1.2 mg/dL (0.1-1.3); PROTEIN TOTAL,TP 7.2 g/dL (6.0-8.0)
[2023-11-26] MEDS: Sodium Chloride 0.9% 1,000 ML IV SCH (10:56)
[2023-11-26] MEDS: Ondansetron 4 MG/2 ML SDV IVPUSH ONE (10:57)
[2023-11-26] MEDS: Sodium Chloride 0.9% 1,000 ML IV ONE (12:06)
[2023-11-26 12:57] LABS: BILIRUBIN,URINE NEGATIVE (NEGATIVE); GLUCOSE,URINE NORMAL (NORMAL); KETONES,URINE 15 mg/dL (NEGATIVE); LEUKOCYTE ESTERASE,URINE MODERATE (NEGATIVE); NITRITE,URINE NEGATIVE (NEGATIVE); OCCULT BLOOD,URINE MODERATE (NEGATIVE); PROTEIN,URINE 30 mg/dL (NEGATIVE); UROBILINOGEN,URINE NORMAL (NEGATIVE)
[2023-11-26 13:24] LABS: APPEARANCE,URINE CLOUDY (CLEAR); BACTERIA,URINE MANY (NS); COLOR,URINE YELLOW (YELLOW); SQUAMOUS EPITHELIAL CELLS,UR MODERATE (NS,R,O); WBC,URINE 20-30 (0-5)
== END 2023-11-26 13:17 | disposition home or self-care (01) ==
LOC: FB.ED 09:53
DX: D46.9 Myelodysplastic syndrome, unspecified (principal); R11.2 Nausea with vomiting, unspecified; Z86.16 Personal history of COVID-19; Z79.899 Other long term (current) drug therapy; Z88.0 Allergy status to penicillin; Z88.2 Allergy status to sulfonamides
CPT/HCPCS: 36415; 80053; 81001; 83605; 85025; 87040; 96361; 96374; 99284; J1642; J2405; J7030; 87186

== ENCOUNTER 2024-06-02 18:18 | Emergency (ER) | payer MEDICAID ==
[2024-06-02 19:15] LABS: BLOOD UREA NITROGEN,BUN 28 mg/dL (7-18); CALCIUM 9.4 mg/dL (8.6-10.2); CARBON DIOXIDE,CO2 27 mmol/L (21-32); CHLORIDE,CL 102 mmol/L (100-110); CREATININE 0.7 mg/dL (0.55-1.02); EST CRCL DRUG DOSING (CG) 75.65 mL/min; ESTIMATED GFR 100 mL/min (>60); GLUCOSE RANDOM 133 mg/dL (80-116); POTASSIUM,K 3.6 mmol/L (3.5-5.3); SODIUM,NA 137 mmol/L (135-145)
[2024-06-02 19:17] LABS: BASOPHILS PERCENT AUTO 0.7 % (0.2-1.5); HEMATOCRIT 23.1 % (34.2-48.2); HEMOGLOBIN 8.2 g/dL (11.4-15.5); LYMPHOCYTES ABSOLUTE AUTO 1.2 x10-3/uL (1.0-4.4); LYMPHOCYTES PERCENT AUTO 33.8 % (18.4-52.1); MEAN CORPUSCULAR HEMOGLOBIN 32.4 pg (23.9-33.9); MEAN CORPUSCULAR HGB CONC 35.5 g/dL (31.9-34.8); MEAN CORPUSCULAR VOLUME 91.4 fL (76.7-100.5); MEAN PLATELET VOLUME 9.4 fL (7.1-12.4); MONOCYTES ABSOLUTE AUTO 0.3 x10-3/uL (0.3-1.0); MONOCYTES PERCENT AUTO 7.4 % (4.4-15.7); NEUTROPHILS ABSOLUTE AUTO 2.1 x10-3/uL (1.5-6.3); NEUTROPHILS PERCENT AUTO 57.1 % (30.8-76.2); PLATELET COUNT,PLT 133 x10(3)uL (151-488); RED BLOOD CELL COUNT 2.53 x10(6)uL (3.60-5.20); RED CELL DISTRIBUTION WIDTH 15.2 % (12.3-16.5); WHITE BLOOD CELL COUNT,WBC 3.6 x10-3/uL (3.0-10.3)
[2024-06-02 19:21] LABS: A/G RATIO 1.2; ALANINE AMINOTRANSFERASE,ALT 82 U/L (12-36); ALBUMIN 3.5 g/dL (3.5-5.2); ALKALINE PHOSPHATASE 134 IU/L (56-112); ASPARTATE AMNIOTRANSFERASE,AST 91 IU/L (5-25); PROTEIN TOTAL,TP 6.4 g/dL (6.0-8.0)
[2024-06-02] MEDS: Clindamycin HCl 150 MG Cap PO ONE (19:39)
[2024-06-02] MEDS: Heparin Sodium 10 Units/ML 5 ML Syringe FLUSH SCH (19:52)
== END 2024-06-02 20:00 | disposition home or self-care (01) ==
LOC: FB.ED 18:18
DX: L02.11 Cutaneous abscess of neck (principal); Z88.0 Allergy status to penicillin; Z88.2 Allergy status to sulfonamides; Z79.899 Other long term (current) drug therapy; Z86.16 Personal history of COVID-19; F17.210 Nicotine dependence, cigarettes, uncomplicated
CPT/HCPCS: 36415; 80053; 83605; 85025; 87070; 87205; 99284; A9270-GY; J1642

== ENCOUNTER 2024-06-21 10:00 | Emergency (ER) | payer MEDICAID ==
[2024-06-21] MEDS: Sodium Chloride 0.9% 1,000 ML IV ONE (10:48)
[2024-06-21] MEDS: Ondansetron 4 MG/2 ML SDV IVPUSH ONE (10:48)
[2024-06-21 10:52] LABS: BASOPHILS PERCENT AUTO 0.8 % (0.2-1.5); EOSINOPHILS PERCENT AUTO 0.8 % (0.6-8.1); HEMOGLOBIN 7.4 g/dL (11.4-15.5); LYMPHOCYTES ABSOLUTE AUTO 0.9 x10-3/uL (1.0-4.4); MEAN CORPUSCULAR HEMOGLOBIN 31.4 pg (23.9-33.9); MEAN CORPUSCULAR HGB CONC 35.2 g/dL (31.9-34.8); MEAN CORPUSCULAR VOLUME 89.3 fL (76.7-100.5); MEAN PLATELET VOLUME 9.3 fL (7.1-12.4); MONOCYTES ABSOLUTE AUTO 0.2 x10-3/uL (0.3-1.0); MONOCYTES PERCENT AUTO 7.5 % (4.4-15.7); NEUTROPHILS ABSOLUTE AUTO 2.2 x10-3/uL (1.5-6.3); NEUTROPHILS PERCENT AUTO 64.9 % (30.8-76.2); PLATELET COUNT,PLT 156 x10(3)uL (151-488); RED BLOOD CELL COUNT 2.34 x10(6)uL (3.60-5.20); RED CELL DISTRIBUTION WIDTH 14.6 % (12.3-16.5); WHITE BLOOD CELL COUNT,WBC 3.3 x10-3/uL (3.0-10.3)
[2024-06-21 10:58] LABS: BLOOD UREA NITROGEN,BUN 26 mg/dL (7-18); BUN/CREATININE RATIO 32.5 (9-20); CALCIUM 9.1 mg/dL (8.6-10.2); CARBON DIOXIDE,CO2 28 mmol/L (21-32); CHLORIDE,CL 100 mmol/L (100-110); CREATININE 0.8 mg/dL (0.55-1.02); ESTIMATED GFR 85 mL/min (>60); GLUCOSE RANDOM 198 mg/dL (80-116); HEMATOCRIT 20.9 % (34.2-48.2); POTASSIUM,K 3.6 mmol/L (3.5-5.3); SODIUM,NA 139 mmol/L (135-145)
[2024-06-21 11:02] LABS: A/G RATIO 1.2; ALANINE AMINOTRANSFERASE,ALT 66 U/L (12-36); ALBUMIN 3.5 g/dL (3.5-5.2); ALKALINE PHOSPHATASE 115 IU/L (56-112); ASPARTATE AMNIOTRANSFERASE,AST 77 IU/L (5-25); BILIRUBIN TOTAL 1.5 mg/dL (0.1-1.3); PROTEIN TOTAL,TP 6.5 g/dL (6.0-8.0)
[2024-06-21] MEDS ORDERED: Magnesium Sulf 1 GM/2 mL SDV 2 GM in Sodium Chloride 0.9% 50 ML IV ONE (11:40)
[2024-06-21] MEDS: Magnesium Sulf/Wat 2 GM/50 mL 2 GM in Premix Bag 1 BAG IV ONE (11:47)
[2024-06-21] MEDS: Sodium Chloride 0.9% 250 ML IV SCH (11:49)
[2024-06-21] MEDS: Acetaminophen 325 MG Tab PO ONE (12:54)
== END 2024-06-21 16:43 | disposition home or self-care (01) ==
LOC: FB.ED 10:00
DX: I48.91 Unspecified atrial fibrillation (principal); D64.9 Anemia, unspecified; E86.0 Dehydration; Z88.0 Allergy status to penicillin; Z79.899 Other long term (current) drug therapy; Z86.16 Personal history of COVID-19
CPT/HCPCS: 36415; 36430; 71045; 80053; 83735; 84443; 85018; 85025; 86850; 86900; 86901; 86920; 86922; 93005; 96361; 96365; 96375; 99285; A9270; J1642; J2405; J3475; P9016

== ENCOUNTER 2024-07-04 12:09 | Emergency (ER) | payer MEDICAID ==
[2024-07-04 12:49] LABS: BASOPHILS PERCENT AUTO 0.6 % (0.2-1.5); EOSINOPHILS PERCENT AUTO 0.6 % (0.6-8.1); HEMATOCRIT 23.5 % (34.2-48.2); HEMOGLOBIN 7.9 g/dL (11.4-15.5); LYMPHOCYTES ABSOLUTE AUTO 1.4 x10-3/uL (1.0-4.4); LYMPHOCYTES PERCENT AUTO 26.2 % (18.4-52.1); MEAN CORPUSCULAR HEMOGLOBIN 29.8 pg (23.9-33.9); MEAN CORPUSCULAR HGB CONC 33.8 g/dL (31.9-34.8); MEAN CORPUSCULAR VOLUME 88.1 fL (76.7-100.5); MEAN PLATELET VOLUME 10.1 fL (7.1-12.4); MONOCYTES ABSOLUTE AUTO 0.3 x10-3/uL (0.3-1.0); MONOCYTES PERCENT AUTO 6.3 % (4.4-15.7); NEUTROPHILS ABSOLUTE AUTO 3.6 x10-3/uL (1.5-6.3); NEUTROPHILS PERCENT AUTO 66.3 % (30.8-76.2); PLATELET COUNT,PLT 131 x10(3)uL (151-488); RED BLOOD CELL COUNT 2.67 x10(6)uL (3.60-5.20); RED CELL DISTRIBUTION WIDTH 14.6 % (12.3-16.5); WHITE BLOOD CELL COUNT,WBC 5.4 x10-3/uL (3.0-10.3)
[2024-07-04 12:52] LABS: BLOOD UREA NITROGEN,BUN 20 mg/dL (7-18); CALCIUM 8.9 mg/dL (8.6-10.2); CARBON DIOXIDE,CO2 26 mmol/L (21-32); CHLORIDE,CL 105 mmol/L (100-110); CREATININE 0.8 mg/dL (0.55-1.02); EST CRCL DRUG DOSING (CG) 63.45 mL/min; ESTIMATED GFR 85 mL/min (>60); GLUCOSE RANDOM 182 mg/dL (80-116); POTASSIUM,K 3.7 mmol/L (3.5-5.3); SODIUM,NA 139 mmol/L (135-145)
[2024-07-04 12:57] LABS: A/G RATIO 1.1; ALANINE AMINOTRANSFERASE,ALT 49 U/L (12-36); ALBUMIN 3.3 g/dL (3.5-5.2); ALKALINE PHOSPHATASE 120 IU/L (56-112); ASPARTATE AMNIOTRANSFERASE,AST 50 IU/L (5-25); BILIRUBIN TOTAL 1.6 mg/dL (0.1-1.3); PROTEIN TOTAL,TP 6.2 g/dL (6.0-8.0)
[2024-07-04] MEDS: Sodium Chloride 0.9% 1,000 ML IV ONE (12:57)
[2024-07-04] MEDS: Morphine 2 MG/ML SYRINGE IVPUSH ONE (12:58)
[2024-07-04] MEDS: Ondansetron 4 MG/2 ML SDV IVPUSH ONE (12:58)
[2024-07-04] MEDS: Iopamidol 755 Mg/ML 100 ML Bottle IV SCH (13:23)
[2024-07-04] MEDS ORDERED: Magnesium Sulf/Wat 2 GM/50 mL 2 GM in Premix Bag 1 BAG IV ONE (14:05)
[2024-07-04] MEDS: Magnesium Sulf 1 GM/2 mL SDV 1 GM in Sodium Chloride 0.9% 50 ML IV ONE (14:36)
== END 2024-07-04 16:06 | disposition home or self-care (01) ==
LOC: FB.ED 12:09
DX: K52.9 Noninfective gastroenteritis and colitis, unspecified (principal); I25.2 Old myocardial infarction; Z88.0 Allergy status to penicillin; Z88.2 Allergy status to sulfonamides; Z79.899 Other long term (current) drug therapy; Z86.16 Personal history of COVID-19
CPT/HCPCS: 36415; 74177; 80053; 83690; 83735; 85025; 96361; 96365; 96375; 99285-25; J1642; J2270; J2405; J7030; Q9967

== ENCOUNTER 2024-07-06 16:30 | Emergency (ER) | payer MEDICAID, OTHER ==
[2024-07-06] MEDS ORDERED: Sodium Chloride 0.9% 10 ML Syringe FLUSH PRN (16:54)
[2024-07-06] MEDS ORDERED: Sodium Chloride 0.9% 1,000 ML IV SCH (17:00)
[2024-07-06 17:02] LABS: BASOPHILS PERCENT AUTO 0.4 % (0.2-1.5); EOSINOPHILS PERCENT AUTO 0.1 % (0.6-8.1); LYMPHOCYTES ABSOLUTE AUTO 2.1 x10-3/uL (1.0-4.4); LYMPHOCYTES PERCENT AUTO 24.4 % (18.4-52.1); MEAN CORPUSCULAR HEMOGLOBIN 30.1 pg (23.9-33.9); MEAN CORPUSCULAR HGB CONC 34.3 g/dL (31.9-34.8); MEAN CORPUSCULAR VOLUME 87.9 fL (76.7-100.5); MONOCYTES ABSOLUTE AUTO 0.5 x10-3/uL (0.3-1.0); MONOCYTES PERCENT AUTO 5.8 % (4.4-15.7); NEUTROPHILS ABSOLUTE AUTO 5.9 x10-3/uL (1.5-6.3); NEUTROPHILS PERCENT AUTO 69.3 % (30.8-76.2); PLATELET COUNT,PLT 183 x10(3)uL (151-488); RED BLOOD CELL COUNT 2.31 x10(6)uL (3.60-5.20); RED CELL DISTRIBUTION WIDTH 14.5 % (12.3-16.5); WHITE BLOOD CELL COUNT,WBC 8.6 x10-3/uL (3.0-10.3)
[2024-07-06 17:09] LABS: BLOOD UREA NITROGEN,BUN 45 mg/dL (7-18); CALCIUM 9.1 mg/dL (8.6-10.2); CARBON DIOXIDE,CO2 22 mmol/L (21-32); CHLORIDE,CL 102 mmol/L (100-110); CREATININE 1.1 mg/dL (0.55-1.02); ESTIMATED GFR 58 mL/min (>60); GLUCOSE RANDOM 259 mg/dL (80-116); POTASSIUM,K 4.6 mmol/L (3.5-5.3); SODIUM,NA 139 mmol/L (135-145)
[2024-07-06 17:14] LABS: A/G RATIO 1.1; ALANINE AMINOTRANSFERASE,ALT 40 U/L (12-36); ALBUMIN 3.2 g/dL (3.5-5.2); ALKALINE PHOSPHATASE 121 IU/L (56-112); ASPARTATE AMNIOTRANSFERASE,AST 37 IU/L (5-25); BILIRUBIN TOTAL 2.5 mg/dL (0.1-1.3); MAGNESIUM 1.8 mg/dL (1.8-2.5); PROTEIN TOTAL,TP 6.2 g/dL (6.0-8.0)
[2024-07-06 17:16] LABS: HEMATOCRIT 20.3 % (34.2-48.2)
[2024-07-06 17:17] LABS: BUN/CREATININE RATIO 40.9 (9-20)
[2024-07-06 17:18] LABS: TROPONIN I 51.9 pg/mL (4.0-60.3)
[2024-07-06 17:31] LABS: TSH ULTRASENSITIVE 5.48 IU/mL (0.36-3.74)
[2024-07-06] MEDS: Dextrose 5%-0.9% NaCl 1,000 ML IV SCH ×2 (17:33→19:53)
[2024-07-06] MEDS: Ondansetron 4 MG/2 ML SDV IVPUSH ONE (17:34)
[2024-07-06] MEDS ORDERED: Sodium Chloride 0.9% 250 ML IV SCH (17:45)
[2024-07-06] MEDS: Iopamidol 755 Mg/ML 100 ML Bottle IV SCH (18:57)
[2024-07-06] MEDS: Acetaminophen/oxyCODONE 325-5 MG Tab PO STA (20:47)
== END 2024-07-06 23:00 ==
LOC: FB.ED 16:30
DX: I50.1 Left ventricular failure, unspecified (principal); I48.91 Unspecified atrial fibrillation; D64.9 Anemia, unspecified; E86.0 Dehydration; F19.10 Other psychoactive substance abuse, uncomplicated; R62.7 Adult failure to thrive; F17.210 Nicotine dependence, cigarettes, uncomplicated; Z86.16 Personal history of COVID-19; Z88.0 Allergy status to penicillin; Z88.2 Allergy status to sulfonamides; Z79.899 Other long term (current) drug therapy
CPT/HCPCS: 36415; 70450; 71275; 80053; 80307; 83735; 83880; 84443; 84484; 85025; 85379; 87428; 93005; 96361; 96374; 99285; A9270; J2405; Q9967; 86920; 86922